=== PATIENT | male | born 1995 | race Caucasian/White ===

== ENCOUNTER 2024-04-02 06:03 | Emergency (ER) | payer MEDICAID ==
[~2024-04-02] VITALS: Ht 170.2 cm; Wt 59.0 kg
[2024-04-02 06:31] VITALS: BP 116/80; PULSE 80; RESP 18; TEMP 36.8; O2SAT 100
[2024-04-02] MEDS ORDERED: IBUP-2030 MT (09:21)
== END 2024-04-02 10:16 | disposition home or self-care (01) ==
LOC: ER 06:03
DX: S62.111A Displaced fracture of triquetrum [cuneiform] bone, right wrist, initial encounter for closed fracture (principal); W18.39XA Other fall on same level, initial encounter; Y93.89 Activity, other specified; Y92.89 Other specified places as the place of occurrence of the external cause; Y99.8 Other external cause status
CPT/HCPCS: 29125; 73030; 73110; 99284